=== PATIENT | female | born 1965 | race Caucasian/White ===

== ENCOUNTER 2022-09-21 19:49 | Emergency (ER) | payer BC ==
[2022-09-21] MEDS ORDERED: Ketorolac Tromethamine 30 MG/ML VIAL ONE (21:16)
[2022-09-21 21:54] LABS: #Basophils 0.1 thou/uL (0.0-0.2); #Eosinphils 0.4 thou/uL (0.0-0.7); #Monocytes 0.6 thou/uL (0.11-0.59); #Neutrophils 6.5 thou/uL (1.40-6.50); %Basophils 0.8 % (0.0-1.0); %Eosinophils 5.1 % (0.0-10.0); %Lymphocytes 10.3 % (21.0-51.0); %Monocytes 6.9 % (0.0-10.0); %Neutrophils 76.5 % (42.0-75.0); Hematocrit 27.2 % (36.0-47.0); Hemoglobin 7.8 g/dL (12.0-16.0); Mean Corpuscular HGB CONC 28.7 g/dL (32.0-36.0); Mean Corpuscular Volume 73.1 fl (78.0-98.0); Mean Platelet Volume 9.9 fL (7.4-10.4); Platelet Count 380 10x3/uL (130-400); RBC Distribution Width 18.6 % (11.5-14.5); Red Blood Cell (RBC) Count 3.72 mill/uL (4.20-5.40); White Blood Cell (WBC) Count 8.5 10x3/uL (4.8-10.8)
[2022-09-21 22:13] LABS: Delete Auto Diff?? NO
[2022-09-21 22:23] LABS: Albumin 3.2 g/dL (3.5-5.0)
[2022-09-21 22:23] LABS: INR-International Normal Ratio 1.4; Prothrombin Time 17.2 sec (12.0-14.7)
[2022-09-21 22:24] LABS: Chloride 106 mmol/L (98-107); Potassium 4.6 mmol/L (3.5-5.1); Sodium 134 mmol/L (136-145)
[2022-09-21 22:24] LABS: PTT 32.7 sec (22.9-36.1)
[2022-09-21 22:25] LABS: Globulin 4.1 g/dL (2.4-3.5); Glucose 138 mg/dL (70-105); Protein, Total 7.3 g/dL (6.0-8.3)
[2022-09-21 22:27] LABS: Anion Gap 20 mmol/L (10-20); Bilirubin, Total 0.7 mg/dL (0.2-1.2); Carbon Dioxide 13 mmol/L (22-29)
[2022-09-21 22:28] LABS: Alkaline Phosphatase 121 U/L (40-110)
[2022-09-21 22:29] LABS: Calc. Creatinine Clearance 0 mL/min (70-130); Estimated GFR 54
[2022-09-21 22:30] LABS: BUN (Urea Nitrogen) 19 mg/dL (9.8-20.1)
[2022-09-21 22:31] LABS: ALT (SGPT) Less than 7 U/L (8-55); AST (SGOT) 13 U/L (5-34)
[2022-09-21 22:49] LABS: Anisocytosis MODERATE=16-30 cells HPF (0-5); Burr Cells SLIGHT = 2-5 cells HPF (0-1); CellaVision Operator ID LAB.JMM; Macrocytosis SLIGHT = 6-15 cells HPF (0-5); Platelet Adequacy Comment Platelets Normal
[2022-09-21] MEDS ORDERED: Tranexamic Acid 1,000 MG/10 ML VIAL ONE (23:55)
[2022-09-22] MEDS ORDERED: Morphine 4 MG/ML VIAL ONE ×3 (01:15→09:02)
[2022-09-22] MEDS ORDERED: Ondansetron PF 4 MG/2 ML Vial ONE (01:15)
[2022-09-22] MEDS ORDERED: HYDROcodone/Acetaminophen 10/325 mg Tablet ONE (04:16)
== END 2022-09-22 09:21 | disposition short-term general hospital (02) ==
LOC: ERS 19:49
DX: N92.0 Excessive and frequent menstruation with regular cycle (principal); D64.9 Anemia, unspecified; E11.9 Type 2 diabetes mellitus without complications; I10 Essential (primary) hypertension; Z79.899 Other long term (current) drug therapy
CPT/HCPCS: 76856; 80053; 85025; 85610; 85730; 86850; 86870; 86900; 86901; 86904; 86905; 86922; 87480; 87510; 87660; 93976; 96365; 96372; 96375; 96376; J1885; J2270; J2405

== ENCOUNTER 2023-03-20 03:00 | Inpatient (IN) | payer OTHER ==
[2023-03-20 04:55] LABS: #Eosinphils 0.3 thou/uL (0.0-0.7); #Monocytes 0.6 thou/uL (0.11-0.59); #Neutrophils 6.7 thou/uL (1.40-6.50); %Basophils 0.5 % (0.0-1.0); %Eosinophils 3.3 % (0.0-10.0); %Lymphocytes 7.3 % (21.0-51.0); %Monocytes 7.3 % (0.0-10.0); Hematocrit 36.3 % (36.0-47.0); Hemoglobin 10.4 g/dL (12.0-16.0); Mean Corpuscular HGB CONC 28.7 g/dL (32.0-36.0); Mean Corpuscular Volume 73.2 fl (78.0-98.0); Mean Platelet Volume 9.7 fL (7.4-10.4); Platelet Count 370 10x3/uL (130-400); RBC Distribution Width 20.6 % (11.5-14.5); Red Blood Cell (RBC) Count 4.96 mill/uL (4.20-5.40); White Blood Cell (WBC) Count 8.3 10x3/uL (4.8-10.8)
[2023-03-20 05:08] LABS: INR-International Normal Ratio 1.2; Prothrombin Time 15.4 sec (12.0-14.7)
[2023-03-20 05:16] LABS: ALT (SGPT) 8 U/L (8-55); AST (SGOT) 11 U/L (5-34); Alkaline Phosphatase 162 U/L (40-110); Anion Gap 12 mmol/L (10-20); BUN (Urea Nitrogen) 21 mg/dL (9.8-20.1); Bilirubin, Total 0.7 mg/dL (0.2-1.2); Calc. Creatinine Clearance 0 mL/min (70-130); Calcium 8.9 mg/dL (7.8-10.44); Carbon Dioxide 28 mmol/L (22-29); Chloride 97 mmol/L (98-107); Estimated GFR 77; Globulin 4.1 g/dL (2.4-3.5); Potassium 4.4 mmol/L (3.5-5.1); Protein, Total 7.1 g/dL (6.0-8.3); Sodium 133 mmol/L (136-145)
[2023-03-20 05:28] LABS: Critical Call Chemistry NUR.KVR@0528; Glucose 455 mg/dL (70-105)
[2023-03-20 06:58] LABS: Troponin I 0.013 ng/mL (< 0.028)
[2023-03-20 09:32] LABS: Troponin I Less than 0.010 ng/mL (< 0.028)
[2023-03-20] MEDS ORDERED: Morphine 4 MG/ML VIAL ONE (09:41)
[2023-03-20] MEDS ORDERED: Ondansetron PF 4 MG/2 ML Vial ONE (09:41)
[2023-03-20] MEDS ORDERED: Nitroglycerin 2% Ointment 1 INCH/1 GM Packet ONE (09:41)
[2023-03-20] MEDS ORDERED: cefTRIAXone (ROCEPHIN) 2 GM VIAL ONE (09:42)
[2023-03-20] MEDS ORDERED: Sodium Chloride 0.9% 100 ML ONE (09:42)
[2023-03-20] MEDS ORDERED: Furosemide 40 MG (4 mL) VIAL ONE ×2 (09:43→15:14)
[2023-03-20] MEDS ORDERED: Nystatin Powder 15 GM BOT TOP PRN (10:57)
[2023-03-20] MEDS ORDERED: Ondansetron ODT 4 MG TAB PO PRN (11:04)
[2023-03-20] MEDS ORDERED: Acetaminophen 650 MG Suppository PR PRN (11:04)
[2023-03-20] MEDS ORDERED: Dextrose 5% in Water 1,000 ML IV PRN (11:07)
[2023-03-20] MEDS ORDERED: Dextrose 50% Abboject 50 ML SYRINGE SLOW IVP PRN (11:07)
[2023-03-20] MEDS ORDERED: Glucagon 1 MG/ML KIT IM PRN (11:07)
[2023-03-20 11:15] LABS: Bacteria/HPF None Seen HPF (None Seen); Bilirubin Negative (Negative); Blood, Urine 3+ (Negative); CAUTI Indications for Culture Pelvic or flank pain; Glucose, Urine (Dipstick) Greater than 1000 mg/dL (Negative); Ketone, Urine Negative (Negative); Leukocyte 250 Leu/uL (Negative); Nitrite Negative (Negative); Protein, Urine (Dipstick) 300 mg/dL (Neg-Trace); RBC/HPF Greater than 50 HPF (0-3); Specific Gravity, Urine 1.017 (1.002-1.036); Squamous Epithelial 0-3 HPF (0-3); Urobilinogen Normal mg/dL (Less than 2); WBC/HPF 21-50 HPF (0-3); pH, Urine 6.5 (5.0-9.0)
[2023-03-20 11:17] LABS: Clarity Cloudy (Clear)
[2023-03-20 11:18] LABS: Urine Culture Reflex Yes Yes
[2023-03-20 12:09] LABS: Troponin I 0.012 ng/mL (< 0.028)
[2023-03-20] MEDS: Vancomycin (BATCH) 2 GM in Premix 1 BAG IVPB SCH (12:58)
[2023-03-20] MEDS ORDERED: Fluconazole 100 MG TAB ONE (15:15)
[2023-03-20] MEDS: Furosemide 40 MG (4 mL) VIAL SLOW IVP SCH (15:19)
[2023-03-20] MEDS: Fluconazole 100 MG TAB PO SCH (15:19)
[2023-03-20 16:30] LABS: Hemoglobin 10.3 g/dL (12.0-16.0)
[2023-03-20 18:41] VITALS: BMI 63.5
[2023-03-20] MEDS ORDERED: Vancomycin 1 GM in Premix 1 BAG IVPB SCH (21:00)
[2023-03-20] MEDS: busPIRone HCl 10 MG TAB PO SCH (21:01)
[2023-03-20] MEDS: Megestrol Acetate 40 MG TAB PO SCH (22:20)
[2023-03-21] MEDS: Vancomycin (BATCH) 1.5 GM in Premix 1 BAG IVPB SCH (00:08)
[2023-03-21] MEDS: Ketorolac Tromethamine 30 MG (1 mL) VIAL IVP SCH (02:37)
[2023-03-21] MEDS: Morphine 4 MG/ML VIAL SLOW IVP PRN (02:38)
[2023-03-21 05:01] LABS: #Basophils 0.1 thou/uL (0.0-0.2); #Eosinphils 0.3 thou/uL (0.0-0.7); #Monocytes 0.7 thou/uL (0.11-0.59); #Neutrophils 7.6 thou/uL (1.40-6.50); %Basophils 0.5 % (0.0-1.0); %Eosinophils 3.5 % (0.0-10.0); %Lymphocytes 7.3 % (21.0-51.0); %Monocytes 7.6 % (0.0-10.0); %Neutrophils 80.5 % (42.0-75.0); Hematocrit 34.4 % (36.0-47.0); Hemoglobin 9.9 g/dL (12.0-16.0); Mean Corpuscular HGB CONC 28.8 g/dL (32.0-36.0); Mean Corpuscular Hemoglobin 21.2 pg (27.0-31.0); Mean Corpuscular Volume 73.7 fl (78.0-98.0); Mean Platelet Volume 9.6 fL (7.4-10.4); Platelet Count 390 10x3/uL (130-400); RBC Distribution Width 20.2 % (11.5-14.5); Red Blood Cell (RBC) Count 4.67 mill/uL (4.20-5.40); White Blood Cell (WBC) Count 9.5 10x3/uL (4.8-10.8)
[2023-03-21 05:29] LABS: ALT (SGPT) 9 U/L (8-55); AST (SGOT) 11 U/L (5-34); Albumin 2.9 g/dL (3.5-5.0); Alkaline Phosphatase 159 U/L (40-110); Anion Gap 10 mmol/L (10-20); BUN (Urea Nitrogen) 20 mg/dL (9.8-20.1); Calc. Creatinine Clearance 185 mL/min (70-130); Calcium 9.2 mg/dL (7.8-10.44); Carbon Dioxide 32 mmol/L (22-29); Chloride 97 mmol/L (98-107); Estimated GFR 76; Glucose 323 mg/dL (70-105); Potassium 4.5 mmol/L (3.5-5.1); Protein, Total 6.9 g/dL (6.0-8.3); Sodium 134 mmol/L (136-145)
[2023-03-21 05:43] LABS: CellaVision Operator ID lab.abc; Hypochromia SLIGHT = 6-15 cells HPF (0-5); Large Platelets 5.9 % (0-5); Microcytosis SLIGHT = 6-15 cells HPF (0-5); Platelet Adequacy Comment Platelets Normal; Polychromasia SLIGHT = 2-3 cells HPF (0-2)
[2023-03-21] MEDS: HumaLOG 300 UNITS/3 ML VIAL SC PRN ×2 (06:26→21:48)
[2023-03-21] MEDS: Megestrol Acetate 40 MG TAB PO SCH ×2 (07:54→22:55)
[2023-03-21] MEDS: Potassium Chloride 10 MEQ TAB PO SCH (07:55)
[2023-03-21] MEDS: Sertraline 25 MG TAB PO SCH (07:55)
[2023-03-21] MEDS: Tamsulosin HCl 0.4 MG CAP PO SCH (07:56)
[2023-03-21] MEDS: Furosemide 40 MG (4 mL) VIAL SLOW IVP SCH ×2 (07:57→13:12)
[2023-03-21] MEDS: cefTRIAXone\\ROCEPHIN 1 GM in Sodium Chloride 0.9% 100 ML IVPB SCH (09:36)
[2023-03-21] MEDS: metFORMIN 500 MG TAB PO SCH (13:11)
[2023-03-21 23:52] LABS: Vancomycin, Trough 21.3 ug/mL
[2023-03-22] MEDS: Vancomycin 1.25 GM in Sodium Chloride 0.9% 250 ML 250 ML IVPB SCH (03:15)
[2023-03-22] MEDS: Glimepiride 2 MG TAB PO SCH (08:23)
[2023-03-22] MEDS: Losartan 25 MG TAB PO SCH (08:23)
[2023-03-22] MEDS: Metolazone 5 MG TAB PO SCH (08:24)
[2023-03-22] MEDS: Megestrol Acetate 40 MG TAB PO SCH (08:25)
[2023-03-22] MEDS: Empagliflozin 10 MG TAB PO SCH (08:32)
[2023-03-22 10:28] LABS: Troponin I 0.015 ng/mL (< 0.028)
[2023-03-22] MEDS: Vancomycin (BATCH) 1.25 GM in Premix 1 BAG IVPB SCH (14:00)
[2023-03-23] MEDS: Ondansetron PF 4 MG/2 ML Vial IVP PRN (03:35)
[2023-03-23 05:48] LABS: Anion Gap 12 mmol/L (10-20); BUN (Urea Nitrogen) 28 mg/dL (9.8-20.1); Calc. Creatinine Clearance 154 mL/min (70-130); Carbon Dioxide 30 mmol/L (22-29); Estimated GFR 62; Glucose 117 mg/dL (70-105); Potassium 3.9 mmol/L (3.5-5.1)
[2023-03-23 06:23] LABS: Chloride 99 mmol/L (98-107); Sodium 137 mmol/L (136-145)
[2023-03-23] MEDS: Insulin Glargine 30 UNITS/0.3 ML VIAL SC SCH (14:20)
[2023-03-23] MEDS: Torsemide 20 MG TAB PO SCH (14:21)
[2023-03-23 14:47] LABS: Vancomycin, Trough 31.1 ug/mL
[2023-03-23] MEDS: Senokot S 8.6-50 MG TAB PO PRN (17:42)
[2023-03-23] MEDS: Acetaminophen 325 MG TAB PO PRN (17:48)
[2023-03-24] MEDS: Bisacodyl 10 MG SUPP PR PRN (02:01)
[2023-03-24 05:13] LABS: #Eosinphils 0.3 thou/uL (0.0-0.7); #Monocytes 0.9 thou/uL (0.11-0.59); #Neutrophils 7.4 thou/uL (1.40-6.50); %Basophils 0.4 % (0.0-1.0); %Eosinophils 2.7 % (0.0-10.0); %Lymphocytes 6.6 % (21.0-51.0); %Monocytes 9.4 % (0.0-10.0); %Neutrophils 80.2 % (42.0-75.0); Hematocrit 35.1 % (36.0-47.0); Hemoglobin 9.7 g/dL (12.0-16.0); Mean Corpuscular HGB CONC 27.6 g/dL (32.0-36.0); Mean Corpuscular Hemoglobin 20.8 pg (27.0-31.0); Mean Corpuscular Volume 75.2 fl (78.0-98.0); Mean Platelet Volume 10.1 fL (7.4-10.4); Platelet Count 381 10x3/uL (130-400); RBC Distribution Width 20.1 % (11.5-14.5); Red Blood Cell (RBC) Count 4.67 mill/uL (4.20-5.40); White Blood Cell (WBC) Count 9.2 10x3/uL (4.8-10.8)
[2023-03-24 05:49] LABS: Anion Gap 11 mmol/L (10-20); BUN (Urea Nitrogen) 29 mg/dL (9.8-20.1); Calc. Creatinine Clearance 141 mL/min (70-130); Calcium 9.1 mg/dL (7.8-10.44); Carbon Dioxide 34 mmol/L (22-29); Chloride 97 mmol/L (98-107); Estimated GFR 54; Glucose 148 mg/dL (70-105); Potassium 4.2 mmol/L (3.5-5.1); Sodium 138 mmol/L (136-145)
[2023-03-24] MEDS: Insulin Glargine 30 UNITS/0.3 ML VIAL SC SCH (08:58)
[2023-03-24] MEDS: Bisacodyl 10 MG SUPP PR SCH (11:42)
[2023-03-24] MEDS: Polyethylene Glycol 3350 17 GM Packet PO SCH (12:48)
[2023-03-25 05:04] LABS: #Basophils 0.1 thou/uL (0.0-0.2); #Eosinphils 0.3 thou/uL (0.0-0.7); #Monocytes 0.9 thou/uL (0.11-0.59); #Neutrophils 6.7 thou/uL (1.40-6.50); %Basophils 0.7 % (0.0-1.0); %Eosinophils 3.1 % (0.0-10.0); %Lymphocytes 8.4 % (21.0-51.0); %Monocytes 10.1 % (0.0-10.0); %Neutrophils 77.4 % (42.0-75.0); Hematocrit 33.5 % (36.0-47.0); Hemoglobin 9.3 g/dL (12.0-16.0); Mean Corpuscular HGB CONC 27.8 g/dL (32.0-36.0); Mean Corpuscular Hemoglobin 20.8 pg (27.0-31.0); Mean Corpuscular Volume 74.8 fl (78.0-98.0); Mean Platelet Volume 9.6 fL (7.4-10.4); Platelet Count 382 10x3/uL (130-400); Red Blood Cell (RBC) Count 4.48 mill/uL (4.20-5.40); White Blood Cell (WBC) Count 8.7 10x3/uL (4.8-10.8)
[2023-03-25 05:28] LABS: Anion Gap 13 mmol/L (10-20); BUN (Urea Nitrogen) 31 mg/dL (9.8-20.1); Calc. Creatinine Clearance 136 mL/min (70-130); Calcium 9.4 mg/dL (7.8-10.44); Carbon Dioxide 33 mmol/L (22-29); Chloride 95 mmol/L (98-107); Estimated GFR 52; Glucose 163 mg/dL (70-105); Potassium 4.1 mmol/L (3.5-5.1); Sodium 137 mmol/L (136-145)
[2023-03-25] MEDS: Polyethylene Glycol 3350 17 GM Packet PO SCH (10:24)
[2023-03-25] MEDS: Sodium Chloride 0.9% 500 ML IV SCH (10:54)
[2023-03-25] MEDS: Fleet Saline Enema 133 ML BOT PR SCH (13:37)
[2023-03-25] MEDS: Amoxicillin/Potassium Clav 875 MG TAB PO SCH ×2 (16:37→20:26)
[2023-03-26 06:11] LABS: #Basophils 0.1 thou/uL (0.0-0.2); #Eosinphils 0.3 thou/uL (0.0-0.7); #Monocytes 0.8 thou/uL (0.11-0.59); #Neutrophils 4.9 thou/uL (1.40-6.50); %Basophils 0.9 % (0.0-1.0); %Eosinophils 4.4 % (0.0-10.0); %Lymphocytes 12.3 % (21.0-51.0); Hemoglobin 10.5 g/dL (12.0-16.0); Mean Corpuscular HGB CONC 27.6 g/dL (32.0-36.0); Mean Corpuscular Hemoglobin 21.1 pg (27.0-31.0); Mean Corpuscular Volume 76.5 fl (78.0-98.0); Platelet Count 340 10x3/uL (130-400); RBC Distribution Width 19.9 % (11.5-14.5); Red Blood Cell (RBC) Count 4.97 mill/uL (4.20-5.40); White Blood Cell (WBC) Count 6.9 10x3/uL (4.8-10.8)
[2023-03-26 06:35] LABS: Anion Gap 13 mmol/L (10-20); BUN (Urea Nitrogen) 27 mg/dL (9.8-20.1); Calc. Creatinine Clearance 142 mL/min (70-130); Calcium 9.6 mg/dL (7.8-10.44); Carbon Dioxide 36 mmol/L (22-29); Chloride 93 mmol/L (98-107); Estimated GFR 58; Glucose 129 mg/dL (70-105); Potassium 4.1 mmol/L (3.5-5.1); Sodium 138 mmol/L (136-145)
[2023-03-26 07:27] LABS: Anisocytosis SLIGHT = 6-15 cells HPF (0-5); CellaVision Operator ID lab.dlt; Hypochromia SLIGHT = 6-15 cells HPF (0-5); Microcytosis SLIGHT = 6-15 cells HPF (0-5); Platelet Adequacy Comment Platelets Normal; Poikilocytosis SLIGHT = 6-15 cells HPF (0-5); Polychromasia SLIGHT = 2-3 cells HPF (0-2); Schistocytes SLIGHT = 2-5 cells HPF (0-1)
[2023-03-26 08:00] VITALS: TEMP 98
[2023-03-26 16:30] VITALS: BP 127/69
== END 2023-03-26 16:41 | disposition home health service (06) | DRG 291 ==
LOC: ERS 03:00 → ERHOLD 08:16 → 2SE 17:24
PROVIDERS: ADMIT Internal Medicine; ATTEND Internal Medicine
DX: I11.0 Hypertensive heart disease with heart failure (principal); I50.33 Acute on chronic diastolic (congestive) heart failure; J96.11 Chronic respiratory failure with hypoxia; L03.311 Cellulitis of abdominal wall; I47.20 Ventricular tachycardia, unspecified; Z68.44 Body mass index [BMI] 60.0-69.9, adult; E11.40 Type 2 diabetes mellitus with diabetic neuropathy, unspecified; E11.65 Type 2 diabetes mellitus with hyperglycemia; E66.01 Morbid (severe) obesity due to excess calories; G47.33 Obstructive sleep apnea (adult) (pediatric); K59.00 Constipation, unspecified; D63.8 Anemia in other chronic diseases classified elsewhere; I27.81 Cor pulmonale (chronic); C55 Malignant neoplasm of uterus, part unspecified; Z88.1 Allergy status to other antibiotic agents; Z79.4 Long term (current) use of insulin; Z99.81 Dependence on supplemental oxygen; Z74.01 Bed confinement status; Z99.3 Dependence on wheelchair; Z79.899 Other long term (current) drug therapy
CPT/HCPCS: 36415; 36416; 71045; 74018; 76705; 80048; 80053; 80202; 81001; 83735; 83880; 84484; 85025; 85610; 85730; 86850; 86870; 86880; 86900; 86901; 86904; 86922; 87081; 87086; 93005; 93010; 94660; 96374; 96375; 97139; J0696; J1815; J1940; J2270; J2405; J3370; J3490; J7050; S0179

== ENCOUNTER 2023-06-24 21:21 | Inpatient (IN) | payer OTHER ==
[2023-06-24] MEDS ORDERED: methylPREDNISolone Sod Succ/PF 125 MG/2 ML VIAL ONE (21:31)
[2023-06-24 21:54] LABS: #Basophils 0.06 10x3/uL (0.0-0.2); %Basophils 0.4 % (0.0-1.0); %Eosinophils 1.5 % (0.0-10.0); %Lymphocytes 3.7 % (21.0-51.0); %Monocytes 8.7 % (0.0-10.0); Mean Corpuscular HGB CONC 29.6 g/dL (32.0-36.0); Mean Corpuscular Hemoglobin 24.7 pg (27.0-31.0); Mean Corpuscular Volume 83.3 fL (78.0-98.0); Mean Platelet Volume 9.2 fL (7.4-10.4); Platelet Count 595 10x3/uL (130-400); RBC Distribution Width 20.7 % (11.5-14.5); Red Blood Cell (RBC) Count 3.24 mill/uL (4.20-5.40)
[2023-06-24 21:56] LABS: Actual Bicarbonate (HCO3a) 19.2 mEq/L (22-28); Analyzer IN Cardio ER; Base Excess (BEa) -5.3 mEq/L (-2.0 to +3.0); CO2 Tension 33.6 mmHg (35.0-45.0); Calcium, Ionized (arterial) 1.24 mmol/L (1.12-1.30); Carboxyhemoglobin (COHb) 0.6 gm% (0.0-3.0); Hematocrit-ABG 26 % (36.0-47.0); Hemoglobin (Hb) 8.9 g/dL (12.0-16.0); O2 Tension (PaO2), arterial 84.4 mmHg (80.0-100.0); Potassium - ABG Lab 4.51 mmol/L (3.70-5.30); pH, Arterial 7.375 (7.35-7.45)
[2023-06-24 21:57] LABS: Puncture Site RBA
[2023-06-24 22:13] LABS: ALT (SGPT) 10 U/L (8-55); AST (SGOT) 18 U/L (5-34); Albumin 2.6 g/dL (3.5-5.0); Alkaline Phosphatase 165 U/L (40-110); Anion Gap 22 mmol/L (10-20); BUN (Urea Nitrogen) 65 mg/dL (9.8-20.1); Bilirubin, Total 0.6 mg/dL (0.2-1.2); Calc. Creatinine Clearance 0 mL/min (70-130); Calcium 9.8 mg/dL (7.8-10.44); Carbon Dioxide 19 mmol/L (22-29); Chloride 101 mmol/L (98-107); Estimated GFR 29; Globulin 4.8 g/dL (2.4-3.5); Glucose 184 mg/dL (70-105); Potassium 4.6 mmol/L (3.5-5.1); Protein, Total 7.4 g/dL (6.0-8.3); Sodium 137 mmol/L (136-145)
[2023-06-24 22:16] LABS: Troponin I 0.024 ng/mL (< 0.028)
[2023-06-24] MEDS ORDERED: Ondansetron PF 4 MG/2 ML Vial IVP PRN (23:00)
[2023-06-24] MEDS ORDERED: Ondansetron ODT 4 MG TAB SL PRN (23:00)
[2023-06-24] MEDS ORDERED: Acetaminophen 325 MG TAB PO PRN (23:00)
[2023-06-24] MEDS ORDERED: Ondansetron ODT 4 MG TAB PO PRN (23:25)
[2023-06-24] MEDS ORDERED: Acetaminophen 650 MG Suppository PR PRN (23:25)
[2023-06-24] MEDS ORDERED: Furosemide 20 MG (2 mL) VIAL ONE (23:47)
[2023-06-24] MEDS ORDERED: Furosemide 40 MG (4 mL) VIAL ONE (23:47)
[2023-06-24] MEDS ORDERED: Glucagon 1 MG/ML KIT IM PRN (23:48)
[2023-06-24] MEDS ORDERED: Dextrose 5% in Water 1,000 ML IV PRN (23:48)
[2023-06-25 05:39] LABS: #Basophils 0.05 10x3/uL (0.0-0.2); #Eosinphils Less than 0.03 10x3/uL (0.0-0.7); %Basophils 0.3 % (0.0-1.0); %Eosinophils 0.1 % (0.0-10.0); %Lymphocytes 1.9 % (21.0-51.0); %Monocytes 2.8 % (0.0-10.0); %Neutrophils 94.2 % (42.0-75.0); Hematocrit 28.8 % (36.0-47.0); Hemoglobin 8.1 g/dL (12.0-16.0); Mean Corpuscular HGB CONC 28.1 g/dL (32.0-36.0); Mean Corpuscular Volume 85.2 fL (78.0-98.0); Mean Platelet Volume 9.9 fL (7.4-10.4); Platelet Count 564 10x3/uL (130-400); Red Blood Cell (RBC) Count 3.38 mill/uL (4.20-5.40)
[2023-06-25 06:02] LABS: Anisocytosis SLIGHT = 6-15 cells HPF (0-5); Hypochromia SLIGHT = 6-15 cells HPF (0-5); Macrocytosis SLIGHT = 6-15 cells HPF (0-5); Platelet Adequacy Comment Platelets Increased; Polychromasia SLIGHT = 2-3 cells HPF (0-2)
[2023-06-25 06:09] LABS: Anion Gap 26 mmol/L (10-20); BUN (Urea Nitrogen) 65 mg/dL (9.8-20.1); Calc. Creatinine Clearance 0 mL/min (70-130); Carbon Dioxide 14 mmol/L (22-29); Chloride 101 mmol/L (98-107); Estimated GFR 29; Glucose 227 mg/dL (70-105); Magnesium 2.1 mg/dL (1.6-2.6); Potassium 5.2 mmol/L (3.5-5.1); Sodium 136 mmol/L (136-145)
[2023-06-25] MEDS: Furosemide 40 MG (4 mL) VIAL SLOW IVP SCH (06:25)
[2023-06-25 07:04] VITALS: BMI 66.7
[2023-06-25] MEDS: Sodium Bicarbonate Tab 325 MG TAB PO SCH ×2 (08:04→21:33)
[2023-06-25] MEDS: Sertraline 25 MG TAB PO SCH (08:04)
[2023-06-25] MEDS: Insulin Glargine 30 UNITS/0.3 ML VIAL SC SCH (08:04)
[2023-06-25] MEDS: Spironolactone 25 MG TAB PO SCH (08:05)
[2023-06-25] MEDS: busPIRone HCl 10 MG TAB PO SCH (08:05)
[2023-06-25] MEDS: Pantoprazole DR 40 MG TAB PO SCH (08:05)
[2023-06-25] MEDS: Megestrol Acetate 40 MG TAB PO SCH (08:05)
[2023-06-25] MEDS: Metoprolol Tartrate 50 MG TAB PO SCH (08:05)
[2023-06-25] MEDS: Acetaminophen 325 MG TAB PO PRN (08:10)
[2023-06-25] MEDS ORDERED: Metoprolol Tartrate 50 MG TAB PO SCH (09:19)
[2023-06-25] MEDS: Metoprolol Tartrate 25 MG TAB PO SCH (11:39)
[2023-06-25] MEDS: HumaLOG 300 UNITS/3 ML VIAL SC PRN ×2 (11:42→16:53)
[2023-06-25] MEDS: Vancomycin HCl 125 MG Capsule PO SCH (18:37)
[2023-06-26] MEDS: Ondansetron PF 4 MG/2 ML Vial IVP PRN (00:21)
[2023-06-26 07:26] LABS: Anion Gap 20 mmol/L (10-20); BUN (Urea Nitrogen) 73 mg/dL (9.8-20.1); Calc. Creatinine Clearance 73 mL/min (70-130); Carbon Dioxide 19 mmol/L (22-29); Chloride 103 mmol/L (98-107); Estimated GFR 24; Glucose 338 mg/dL (70-105); Potassium 4.7 mmol/L (3.5-5.1); Sodium 137 mmol/L (136-145)
[2023-06-27 06:47] LABS: Anion Gap 21 mmol/L (10-20); BUN (Urea Nitrogen) 79 mg/dL (9.8-20.1); Calc. Creatinine Clearance 66 mL/min (70-130); Calcium 9.5 mg/dL (7.8-10.44); Carbon Dioxide 17 mmol/L (22-29); Chloride 103 mmol/L (98-107); Estimated GFR 21; Glucose 352 mg/dL (70-105); Potassium 4.9 mmol/L (3.5-5.1); Sodium 136 mmol/L (136-145)
[2023-06-27] MEDS: Cyclobenzaprine 10 MG TAB PO PRN (23:38)
[2023-06-28] MEDS: Morphine 4 MG/ML VIAL ONE (04:15)
[2023-06-28 07:04] LABS: Anion Gap 22 mmol/L (10-20); BUN (Urea Nitrogen) 83 mg/dL (9.8-20.1); Calc. Creatinine Clearance 66 mL/min (70-130); Calcium 9.4 mg/dL (7.8-10.44); Carbon Dioxide 19 mmol/L (22-29); Chloride 103 mmol/L (98-107); Estimated GFR 21; Glucose 201 mg/dL (70-105); Potassium 4.6 mmol/L (3.5-5.1); Sodium 139 mmol/L (136-145)
[2023-06-28] MEDS: Lactated Ringer's 500 ML IV SCH (08:49)
[2023-06-28] MEDS: Heparin 5,000 UNITS/ML VIAL SC SCH (08:50)
[2023-06-28 09:03] LABS: #Basophils 0.06 10x3/uL (0.0-0.2); %Basophils 0.4 % (0.0-1.0); %Eosinophils 3.6 % (0.0-10.0); %Lymphocytes 3.2 % (21.0-51.0); %Monocytes 8.1 % (0.0-10.0); Hematocrit 31.9 % (36.0-47.0); Mean Corpuscular HGB CONC 28.2 g/dL (32.0-36.0); Mean Corpuscular Hemoglobin 24.6 pg (27.0-31.0); Mean Corpuscular Volume 87.2 fL (78.0-98.0); Mean Platelet Volume 9.8 fL (7.4-10.4); Platelet Count 599 10x3/uL (130-400); RBC Distribution Width 21.2 % (11.5-14.5); Red Blood Cell (RBC) Count 3.66 mill/uL (4.20-5.40)
[2023-06-28 10:20] LABS: Anisocytosis MODERATE=16-30 cells HPF (0-5); Hypochromia SLIGHT = 6-15 cells HPF (0-5); Platelet Adequacy Comment Platelets Increased; Polychromasia SLIGHT = 2-3 cells HPF (0-2)
[2023-06-28] MEDS: Furosemide 40 MG (4 mL) VIAL SLOW IVP SCH (14:30)
[2023-06-28] MEDS: Albumin 25% 25 GM (100 mL) BOT IVPB SCH (14:30)
[2023-06-28 21:32] LABS: Bilirubin Negative (Negative); Blood, Urine 3+ (Negative); Clarity Turbid (Clear); Glucose, Urine (Dipstick) Normal (Negative); Ketone, Urine Negative (Negative); Leukocyte 250 Leu/uL (Negative); Nitrite Negative (Negative); Protein, Urine (Dipstick) 200 mg/dL (Neg-Trace); RBC/HPF Greater than 50 HPF (0-3); Specific Gravity, Urine 1.018 (1.002-1.036); Urobilinogen Normal mg/dL (Less than 2); WBC/HPF 21-50 HPF (0-3); Yeast-Budding 2+ HPF (None Seen); pH, Urine 5.5 (5.0-9.0)
[2023-06-28] MEDS: Ipratropium/Albuterol 3 ML NEB NEB PRN (21:32)
[2023-06-28 21:36] LABS: Bacteria/HPF 1+ HPF (None Seen)
[2023-06-29] MEDS: Morphine 2 MG/ML VIAL SLOW IVP SCH (01:31)
[2023-06-29 06:47] LABS: #Basophils 0.07 10x3/uL (0.0-0.2); %Basophils 0.4 % (0.0-1.0); %Eosinophils 2.4 % (0.0-10.0); %Lymphocytes 2.9 % (21.0-51.0); %Monocytes 7.6 % (0.0-10.0); %Neutrophils 85.5 % (42.0-75.0); Hemoglobin 8.6 g/dL (12.0-16.0); Mean Corpuscular HGB CONC 27.7 g/dL (32.0-36.0); Mean Corpuscular Hemoglobin 23.8 pg (27.0-31.0); Mean Corpuscular Volume 85.9 fL (78.0-98.0); Mean Platelet Volume 9.6 fL (7.4-10.4); Platelet Count 552 10x3/uL (130-400); RBC Distribution Width 21.6 % (11.5-14.5); Red Blood Cell (RBC) Count 3.61 mill/uL (4.20-5.40)
[2023-06-29 07:06] LABS: Anion Gap 23 mmol/L (10-20); BUN (Urea Nitrogen) 86 mg/dL (9.8-20.1); Calc. Creatinine Clearance 67 mL/min (70-130); Carbon Dioxide 22 mmol/L (22-29); Chloride 100 mmol/L (98-107); Estimated GFR 21; Glucose 200 mg/dL (70-105); Potassium 4.8 mmol/L (3.5-5.1); Sodium 140 mmol/L (136-145)
[2023-06-29 07:36] LABS: Anisocytosis MARKED = >30 cells HPF (0-5); Hypochromia SLIGHT = 6-15 cells HPF (0-5); Microcytosis SLIGHT = 6-15 cells HPF (0-5); Platelet Adequacy Comment Platelets Increased; Poikilocytosis SLIGHT = 6-15 cells HPF (0-5); Polychromasia SLIGHT = 2-3 cells HPF (0-2); Schistocytes SLIGHT = 2-5 cells HPF (0-1)
[2023-06-29] MEDS: Albumin 25% 25 GM (100 mL) BOT IVPB SCH (14:02)
[2023-06-30] MEDS: Morphine 2 MG/ML VIAL SLOW IVP SCH (02:18)
[2023-06-30 06:12] LABS: #Basophils 0.06 10x3/uL (0.0-0.2); %Basophils 0.4 % (0.0-1.0); %Eosinophils 2.8 % (0.0-10.0); %Lymphocytes 2.9 % (21.0-51.0); %Monocytes 7.8 % (0.0-10.0); %Neutrophils 84.8 % (42.0-75.0); Hematocrit 27.7 % (36.0-47.0); Hemoglobin 7.7 g/dL (12.0-16.0); Mean Corpuscular HGB CONC 27.8 g/dL (32.0-36.0); Mean Corpuscular Hemoglobin 24.2 pg (27.0-31.0); Mean Corpuscular Volume 87.1 fL (78.0-98.0); Mean Platelet Volume 9.7 fL (7.4-10.4); Platelet Count 465 10x3/uL (130-400); RBC Distribution Width 21.6 % (11.5-14.5); Red Blood Cell (RBC) Count 3.18 mill/uL (4.20-5.40)
[2023-06-30 06:49] LABS: Anisocytosis MODERATE=16-30 cells HPF (0-5); Hypochromia SLIGHT = 6-15 cells HPF (0-5); Microcytosis SLIGHT = 6-15 cells HPF (0-5); Platelet Adequacy Comment Platelets Increased; Polychromasia SLIGHT = 2-3 cells HPF (0-2)
[2023-06-30] MEDS: Digoxin 0.5 MG/2 ML AMP ONE (06:51)
[2023-06-30 07:14] LABS: Anion Gap 21 mmol/L (10-20); BUN (Urea Nitrogen) 88 mg/dL (9.8-20.1); Calc. Creatinine Clearance 70 mL/min (70-130); Carbon Dioxide 20 mmol/L (22-29); Chloride 102 mmol/L (98-107); Estimated GFR 22; Glucose 195 mg/dL (70-105); Potassium 5.3 mmol/L (3.5-5.1); Sodium 138 mmol/L (136-145)
[2023-06-30] MEDS: Adenosine 6 mg (2 mL) VIAL ONE (07:34)
[2023-06-30] MEDS: Adenosine 6 mg (2 mL) VIAL IVP SCH ×2 (07:39→08:41)
[2023-06-30] MEDS ORDERED: Metoprolol Tartrate 5 MG (5 mL) VIAL IVP SCH (08:00)
[2023-06-30] MEDS ORDERED: ADENOSINE 60 MG/20 ML SDV IVP SCH (08:30)
[2023-06-30] MEDS: Metoprolol Tartrate 5 MG (5 mL) VIAL ONE ×2 (08:41→08:42)
[2023-06-30] MEDS: Metoprolol Tartrate 5 MG (5 mL) VIAL IVP SCH ×2 (08:42→08:44)
[2023-06-30] MEDS: Amiodarone 150 MG in Dextrose 5% in Water 100 ML IVPB SCH (10:37)
[2023-06-30] MEDS: Amiodarone 450 MG in Dextrose 5% in Water 250 ML IVPB SCH (10:38)
[2023-06-30] MEDS: Magnesium 2 GM/50 ML(in water) 2 GM in Premix 1 BAG IVPB SCH (10:38)
[2023-06-30] MEDS: ADENOSINE 60 MG/20 ML SDV IVP SCH (12:53)
[2023-06-30] MEDS: Digoxin 0.5 MG/2 ML AMP SLOW IVP SCH (14:19)
[2023-06-30] MEDS: Albumin 25% 25 GM (100 mL) BOT IVPB SCH ×2 (15:16→20:49)
[2023-07-01 07:34] LABS: Anion Gap 21 mmol/L (10-20); BUN (Urea Nitrogen) 91 mg/dL (9.8-20.1); Calc. Creatinine Clearance 64 mL/min (70-130); Calcium 10.1 mg/dL (7.8-10.44); Carbon Dioxide 19 mmol/L (22-29); Chloride 102 mmol/L (98-107); Estimated GFR 20; Glucose 249 mg/dL (70-105); Sodium 137 mmol/L (136-145)
[2023-07-01 07:47] LABS: #Basophils 0.07 10x3/uL (0.0-0.2); %Basophils 0.4 % (0.0-1.0); %Eosinophils 2.4 % (0.0-10.0); %Lymphocytes 2.6 % (21.0-51.0); %Monocytes 9.1 % (0.0-10.0); %Neutrophils 83.7 % (42.0-75.0); Hematocrit 29.1 % (36.0-47.0); Hemoglobin 8.3 g/dL (12.0-16.0); Mean Corpuscular HGB CONC 28.5 g/dL (32.0-36.0); Mean Corpuscular Hemoglobin 24.5 pg (27.0-31.0); Mean Corpuscular Volume 85.8 fL (78.0-98.0); Mean Platelet Volume 9.8 fL (7.4-10.4); Platelet Count 472 10x3/uL (130-400); RBC Distribution Width 21.3 % (11.5-14.5); Red Blood Cell (RBC) Count 3.39 mill/uL (4.20-5.40)
[2023-07-01] MEDS: Amiodarone 200 MG TAB PO SCH (08:58)
[2023-07-01] MEDS: Albumin 25% 25 GM (100 mL) BOT IVPB SCH (15:18)
[2023-07-01] MEDS: Metolazone 5 MG TAB PO SCH (15:32)
[2023-07-02 04:45] LABS: #Basophils 0.06 10x3/uL (0.0-0.2); %Basophils 0.4 % (0.0-1.0); %Eosinophils 2.5 % (0.0-10.0); %Lymphocytes 2.2 % (21.0-51.0); %Monocytes 8.5 % (0.0-10.0); %Neutrophils 84.9 % (42.0-75.0); Hematocrit 29.7 % (36.0-47.0); Hemoglobin 8.2 g/dL (12.0-16.0); Mean Corpuscular HGB CONC 27.6 g/dL (32.0-36.0); Mean Corpuscular Hemoglobin 24.6 pg (27.0-31.0); Mean Corpuscular Volume 89.2 fL (78.0-98.0); Mean Platelet Volume 9.6 fL (7.4-10.4); Platelet Count 487 10x3/uL (130-400); RBC Distribution Width 21.4 % (11.5-14.5); Red Blood Cell (RBC) Count 3.33 mill/uL (4.20-5.40)
[2023-07-02 05:20] LABS: Anion Gap 22 mmol/L (10-20); BUN (Urea Nitrogen) 94 mg/dL (9.8-20.1); Calc. Creatinine Clearance 64 mL/min (70-130); Carbon Dioxide 19 mmol/L (22-29); Chloride 102 mmol/L (98-107); Estimated GFR 19; Glucose 257 mg/dL (70-105); Potassium 4.9 mmol/L (3.5-5.1); Sodium 138 mmol/L (136-145)
[2023-07-02] MEDS: Metolazone 5 MG TAB PO SCH (10:19)
[2023-07-02] MEDS: Albumin 25% 25 GM (100 mL) BOT IVPB SCH (16:03)
[2023-07-03] MEDS: Furosemide 40 MG (4 mL) VIAL SLOW IVP SCH (05:36)
[2023-07-03 07:01] LABS: #Basophils 0.07 10x3/uL (0.0-0.2); %Basophils 0.4 % (0.0-1.0); %Eosinophils 2.3 % (0.0-10.0); %Lymphocytes 2.2 % (21.0-51.0); %Monocytes 9.4 % (0.0-10.0); %Neutrophils 84.6 % (42.0-75.0); Hematocrit 29.2 % (36.0-47.0); Hemoglobin 8.2 g/dL (12.0-16.0); Mean Corpuscular HGB CONC 28.1 g/dL (32.0-36.0); Mean Corpuscular Hemoglobin 24.1 pg (27.0-31.0); Mean Corpuscular Volume 85.9 fL (78.0-98.0); Mean Platelet Volume 9.3 fL (7.4-10.4); Platelet Count 453 10x3/uL (130-400); RBC Distribution Width 21.2 % (11.5-14.5)
[2023-07-03 07:12] LABS: Anion Gap 21 mmol/L (10-20); BUN (Urea Nitrogen) 93 mg/dL (9.8-20.1); Calc. Creatinine Clearance 64 mL/min (70-130); Calcium 10.4 mg/dL (7.8-10.44); Carbon Dioxide 19 mmol/L (22-29); Chloride 104 mmol/L (98-107); Estimated GFR 20; Glucose 183 mg/dL (70-105); Potassium 4.9 mmol/L (3.5-5.1); Sodium 139 mmol/L (136-145)
[2023-07-03] MEDS: Insulin Glargine 30 UNITS/0.3 ML VIAL SC SCH (10:32)
[2023-07-04 07:35] LABS: #Basophils 0.05 10x3/uL (0.0-0.2); %Basophils 0.3 % (0.0-1.0); %Eosinophils 1.7 % (0.0-10.0); %Lymphocytes 2.3 % (21.0-51.0); %Monocytes 9.6 % (0.0-10.0); %Neutrophils 85.3 % (42.0-75.0); Hematocrit 29.9 % (36.0-47.0); Hemoglobin 8.4 g/dL (12.0-16.0); Mean Corpuscular HGB CONC 28.1 g/dL (32.0-36.0); Mean Corpuscular Hemoglobin 24.8 pg (27.0-31.0); Mean Corpuscular Volume 88.2 fL (78.0-98.0); Mean Platelet Volume 9.5 fL (7.4-10.4); Platelet Count 483 10x3/uL (130-400); RBC Distribution Width 21.2 % (11.5-14.5); Red Blood Cell (RBC) Count 3.39 mill/uL (4.20-5.40)
[2023-07-04 07:45] LABS: Anion Gap 22 mmol/L (10-20); BUN (Urea Nitrogen) 95 mg/dL (9.8-20.1); Calc. Creatinine Clearance 63 mL/min (70-130); Calcium 10.1 mg/dL (7.8-10.44); Carbon Dioxide 17 mmol/L (22-29); Chloride 105 mmol/L (98-107); Estimated GFR 19; Glucose 175 mg/dL (70-105); Potassium 5.2 mmol/L (3.5-5.1); Sodium 139 mmol/L (136-145)
[2023-07-04 08:10] LABS: Anisocytosis SLIGHT = 6-15 cells HPF (0-5); Hypochromia SLIGHT = 6-15 cells HPF (0-5); Ovalocytes SLIGHT = 2-5 cells HPF (0-1); Platelet Adequacy Comment Platelets Increased; Polychromasia MODERATE = 3-4 cells HPF (0-2); Schistocytes SLIGHT = 2-5 cells HPF (0-1)
[2023-07-04] MEDS: Sodium Bicarbonate Tab 325 MG TAB PO SCH (14:15)
[2023-07-04] MEDS: Furosemide 40 MG (4 mL) VIAL SLOW IVP SCH (14:15)
[2023-07-04] MEDS: Albumin 25% 25 GM (100 mL) BOT IVPB SCH (14:16)
[2023-07-05 04:21] LABS: #Basophils 0.07 10x3/uL (0.0-0.2); %Basophils 0.4 % (0.0-1.0); %Eosinophils 1.3 % (0.0-10.0); %Monocytes 8.3 % (0.0-10.0); %Neutrophils 87.2 % (42.0-75.0); Hematocrit 29.8 % (36.0-47.0); Hemoglobin 8.5 g/dL (12.0-16.0); Mean Corpuscular HGB CONC 28.5 g/dL (32.0-36.0); Mean Corpuscular Hemoglobin 24.1 pg (27.0-31.0); Mean Corpuscular Volume 84.4 fL (78.0-98.0); Mean Platelet Volume 9.5 fL (7.4-10.4); Platelet Count 458 10x3/uL (130-400); RBC Distribution Width 21.1 % (11.5-14.5); Red Blood Cell (RBC) Count 3.53 mill/uL (4.20-5.40)
[2023-07-05 04:32] LABS: Anion Gap 22 mmol/L (10-20); BUN (Urea Nitrogen) 101 mg/dL (9.8-20.1); Calc. Creatinine Clearance 60 mL/min (70-130); Calcium 10.3 mg/dL (7.8-10.44); Carbon Dioxide 19 mmol/L (22-29); Chloride 103 mmol/L (98-107); Estimated GFR 18; Glucose 149 mg/dL (70-105); Potassium 5.1 mmol/L (3.5-5.1); Sodium 139 mmol/L (136-145)
[2023-07-05] MEDS ORDERED: Epoetin (ESRD) 10,000 UNITS/ML VIAL SC SCH (08:45)
[2023-07-05] MEDS: EPOETIN ALFA-EPBX (ESRD) 10,000 UNITS/ML VIAL SC SCH (14:12)
[2023-07-05] MEDS: Albumin 25% 25 GM (100 mL) BOT IVPB SCH (21:02)
[2023-07-06] MEDS: Simethicone Chewable 80 MG TAB PO PRN (04:06)
[2023-07-06 04:44] LABS: #Basophils 0.08 10x3/uL (0.0-0.2); %Basophils 0.4 % (0.0-1.0); %Eosinophils 1.2 % (0.0-10.0); %Lymphocytes 2.3 % (21.0-51.0); %Monocytes 8.4 % (0.0-10.0); Hematocrit 28.6 % (36.0-47.0); Hemoglobin 8.1 g/dL (12.0-16.0); Mean Corpuscular HGB CONC 28.3 g/dL (32.0-36.0); Mean Corpuscular Hemoglobin 24.3 pg (27.0-31.0); Mean Corpuscular Volume 85.6 fL (78.0-98.0); Mean Platelet Volume 10.1 fL (7.4-10.4); Platelet Count 430 10x3/uL (130-400); RBC Distribution Width 21.1 % (11.5-14.5); Red Blood Cell (RBC) Count 3.34 mill/uL (4.20-5.40)
[2023-07-06 04:55] LABS: Anion Gap 24 mmol/L (10-20); BUN (Urea Nitrogen) 103 mg/dL (9.8-20.1); Calc. Creatinine Clearance 57 mL/min (70-130); Calcium 10.2 mg/dL (7.8-10.44); Carbon Dioxide 17 mmol/L (22-29); Chloride 104 mmol/L (98-107); Estimated GFR 17; Glucose 130 mg/dL (70-105); Potassium 5.3 mmol/L (3.5-5.1); Sodium 140 mmol/L (136-145)
[2023-07-06 08:41] LABS: INR-International Normal Ratio 1.5; Prothrombin Time 18.5 sec (12.0-14.7)
[2023-07-06 08:42] LABS: PTT 39.8 sec (22.9-36.1)
[2023-07-06 10:02] LABS: HBSAB Concentration Less than 8.00 mIU/mL; HBsAg Index 0.79 S/CO (0-0.99); Hep B Core Total Ab NONREACTIVE (NonReactive); Hep B Core Total Index 0.16 S/CO (0-0.79); Hep B Surf AB NONREACTIVE (NonReactive); Hep B Surf Ag NONREACTIVE S/CO (NonReactive); Hep C IgG Ab NONREACTIVE S/CO (NonReactive); Hep C Index 0.11 S/CO (0-0.79)
[2023-07-06] MEDS: Lidocaine 1% (PF) 30 ML VIAL ONE (11:55)
[2023-07-06] MEDS: Vancomycin HCl 125 MG Capsule PO SCH (14:53)
[2023-07-07] MEDS ORDERED: Heparin 10,000 UNITS/ 10 ML VIAL ONE (08:57)
[2023-07-07 10:47] LABS: #Basophils 0.09 10x3/uL (0.0-0.2); %Basophils 0.4 % (0.0-1.0); %Eosinophils 0.5 % (0.0-10.0); %Lymphocytes 1.9 % (21.0-51.0); %Monocytes 6.5 % (0.0-10.0); %Neutrophils 89.5 % (42.0-75.0); Hematocrit 30.6 % (36.0-47.0); Hemoglobin 8.4 g/dL (12.0-16.0); Mean Corpuscular HGB CONC 27.5 g/dL (32.0-36.0); Mean Corpuscular Hemoglobin 24.5 pg (27.0-31.0); Mean Corpuscular Volume 89.2 fL (78.0-98.0); Mean Platelet Volume 9.6 fL (7.4-10.4); Platelet Count 466 10x3/uL (130-400); Red Blood Cell (RBC) Count 3.43 mill/uL (4.20-5.40)
[2023-07-07 11:03] LABS: Albumin 4.3 g/dL (3.5-5.0); Anion Gap 27 mmol/L (10-20); BUN (Urea Nitrogen) 109 mg/dL (9.8-20.1); BUN/Creatinine Ratio 31.41; Calc. Creatinine Clearance 51 mL/min (70-130); Calcium 10.5 mg/dL (7.8-10.44); Carbon Dioxide 17 mmol/L (22-29); Chloride 101 mmol/L (98-107); Estimated GFR 15; Glucose 159 mg/dL (70-105); Phosphorus 6.8 mg/dL (2.3-4.7); Potassium 5.5 mmol/L (3.5-5.1); Sodium 139 mmol/L (136-145)
[2023-07-07] MEDS: LOKELMA 10 GM PACKET PO SCH (13:20)
[2023-07-07 15:12] LABS: Actual Bicarbonate (HCO3a) 17.9 mEq/L (22-28); Base Excess (BEa) -9.6 mEq/L (-2.0 to +3.0); CO2 Tension 46.4 mmHg (35.0-45.0); Calcium, Ionized (arterial) 1.24 mmol/L (1.12-1.30); Carboxyhemoglobin (COHb) 1.1 gm% (0.0-3.0); Hematocrit-ABG 27 % (36.0-47.0); Hemoglobin (Hb) 9.3 g/dL (12.0-16.0); O2 Tension (PaO2), arterial 60.7 mmHg (80.0-100.0); Potassium - ABG Lab 5.51 mmol/L (3.70-5.30)
[2023-07-07 15:20] LABS: pH, Arterial 7.203 (7.35-7.45)
[2023-07-07 15:21] LABS: Puncture Site RRA
[2023-07-07] MEDS ORDERED: Ventilator Sedation Protocol FS SCH (15:37)
[2023-07-07] MEDS ORDERED: Fentanyl BOLUS 250 ML IVPB PRN (15:45)
[2023-07-07] MEDS ORDERED: Lorazepam 2 MG/ML VIAL SLOW IVP PRN (15:45)
[2023-07-07] MEDS ORDERED: Morphine 2 MG/ML VIAL SLOW IVP PRN (15:45)
[2023-07-07] MEDS ORDERED: Propofol BOLUS 1,000 MG/100 ML VIAL IV PRN (15:45)
[2023-07-07] MEDS ORDERED: DISCONTINUE PREVIOUS NARCOTIC PAIN MEDICATIONS AND BENZODIAZEPINES FS SCH (15:45)
[2023-07-07] MEDS: Propofol 1,000 MG/100 ML VIAL IV PRN (16:24)
[2023-07-07] MEDS: NOREPINEPHRINE 8 MG/250 ML-D5W 250 ML IVPB SCH (17:33)
[2023-07-07] MEDS ORDERED: Albumin 25% 25 GM (100 mL) BOT IVPB PRN (17:49)
[2023-07-07] MEDS: Propofol 1,000 MG/100 ML VIAL IV ONE (19:33)
[2023-07-07] MEDS ORDERED: Acetaminophen 650 MG/20.3 ML UDCUP PO PRN (21:08)
[2023-07-07] MEDS ORDERED: Cyclobenzaprine 10 MG TAB PER TUBE PRN (21:15)
[2023-07-07] MEDS ORDERED: Acetaminophen 650 MG/20.3 ML UDCUP PER TUBE PRN (21:15)
[2023-07-07] MEDS: Vancomycin HCl 125 MG/5 ML (BATCHED) UDCUP PER TUBE SCH (23:16)
[2023-07-08 05:29] LABS: #Basophils 0.06 10x3/uL (0.0-0.2); %Basophils 0.3 % (0.0-1.0); %Eosinophils 0.8 % (0.0-10.0); %Lymphocytes 2.1 % (21.0-51.0); %Monocytes 6.7 % (0.0-10.0); %Neutrophils 89.3 % (42.0-75.0); Hematocrit 27.6 % (36.0-47.0); Hemoglobin 7.8 g/dL (12.0-16.0); Mean Corpuscular HGB CONC 28.3 g/dL (32.0-36.0); Mean Corpuscular Hemoglobin 24.5 pg (27.0-31.0); Mean Corpuscular Volume 86.8 fL (78.0-98.0); Mean Platelet Volume 9.9 fL (7.4-10.4); Platelet Count 448 10x3/uL (130-400); RBC Distribution Width 20.9 % (11.5-14.5); Red Blood Cell (RBC) Count 3.18 mill/uL (4.20-5.40)
[2023-07-08 05:37] LABS: ALT (SGPT) 8 U/L (8-55); AST (SGOT) 14 U/L (5-34); Albumin 3.8 g/dL (3.5-5.0); Alkaline Phosphatase 121 U/L (40-110); Anion Gap 29 mmol/L (10-20); BUN (Urea Nitrogen) 95 mg/dL (9.8-20.1); BUN/Creatinine Ratio 27.07; Bilirubin, Total 0.9 mg/dL (0.2-1.2); Calc. Creatinine Clearance 49 mL/min (70-130); Calcium 10.3 mg/dL (7.8-10.44); Carbon Dioxide 15 mmol/L (22-29); Chloride 99 mmol/L (98-107); Estimated GFR 14; Globulin 3.9 g/dL (2.4-3.5); Glucose 170 mg/dL (70-105); Phosphorus 5.8 mg/dL (2.3-4.7); Potassium 5.1 mmol/L (3.5-5.1); Protein, Total 7.7 g/dL (6.0-8.3); Sodium 138 mmol/L (136-145)
[2023-07-08 06:12] LABS: Anisocytosis SLIGHT = 6-15 cells HPF (0-5); Hypochromia SLIGHT = 6-15 cells HPF (0-5); Microcytosis SLIGHT = 6-15 cells HPF (0-5); Platelet Adequacy Comment Platelets Normal; Polychromasia SLIGHT = 2-3 cells HPF (0-2)
[2023-07-08 07:39] LABS: Actual Bicarbonate (HCO3a) 16.2 mEq/L (22-28); Base Excess (BEa) -8.8 mEq/L (-2.0 to +3.0); CO2 Tension 31.5 mmHg (35.0-45.0); Calcium, Ionized (arterial) 1.22 mmol/L (1.12-1.30); Carboxyhemoglobin (COHb) 1.4 gm% (0.0-3.0); Hematocrit-ABG 26 % (36.0-47.0); O2 Tension (PaO2), arterial 76.2 mmHg (80.0-100.0); Potassium - ABG Lab 5.17 mmol/L (3.70-5.30); pH, Arterial 7.328 (7.35-7.45)
[2023-07-08 07:41] LABS: ALV-art Gradient 383.525 mmHg (0-20); Puncture Site LRA
[2023-07-08] MEDS ORDERED: Heparin 10,000 UNITS/ 10 ML VIAL ONE (08:59)
[2023-07-08] MEDS: busPIRone HCl 10 MG TAB PER TUBE SCH (09:01)
[2023-07-08] MEDS: Megestrol Acetate 40 MG TAB PER TUBE SCH (09:01)
[2023-07-08] MEDS: Metolazone 5 MG TAB PER TUBE SCH (09:02)
[2023-07-08] MEDS: Sertraline 25 MG TAB PER TUBE SCH (09:03)
[2023-07-08] MEDS: Pantoprazole 40 MG VIAL IVP SCH (09:04)
[2023-07-08] MEDS: Amiodarone 200 MG TAB PER TUBE SCH (09:29)
[2023-07-08 13:55] VITALS: BMI 68.1
[2023-07-08] MEDS: Fentanyl CADD 100 ML IV SCH (14:58)
[2023-07-08] MEDS: fentaNYL 50 mcg/mL 1 mL Vial SLOW IVP SCH (15:34)
[2023-07-08] MEDS: Vecuronium 10 MG VIAL IVP SCH (15:36)
[2023-07-08] MEDS: Sterile Water 10 ML ONE (15:36)
[2023-07-08] MEDS: fentaNYL 50 mcg/mL 1 mL Vial ONE (15:44)
[2023-07-08] MEDS: Vecuronium 10 MG VIAL ONE (15:45)
[2023-07-08] MEDS: Norepinephrine 16 MG in Dextrose 5% in Water 234 ML IVPB PRN (16:56)
[2023-07-08 18:41] VITALS: BP 101/65
[2023-07-08 22:39] LABS: Base Excess (BEa) -13.6 mEq/L (-2.0 to +3.0); CO2 Tension 39.8 mmHg (35.0-45.0); Calcium, Ionized (arterial) 1.19 mmol/L (1.12-1.30); Carboxyhemoglobin (COHb) 0.4 gm% (0.0-3.0); Hematocrit-ABG 30 % (36.0-47.0); Hemoglobin (Hb) 10.2 g/dL (12.0-16.0); Potassium - ABG Lab 5.97 mmol/L (3.70-5.30)
[2023-07-08 22:45] LABS: Actual Bicarbonate (HCO3a) 14.1 mEq/L (22-28); O2 Tension (PaO2), arterial 59.1 mmHg (80.0-100.0); pH, Arterial 7.168 (7.35-7.45)
[2023-07-08 22:46] LABS: Puncture Site LBA
[2023-07-08] MEDS: Dextrose 50% Abboject 50 ML SYRINGE SLOW IVP PRN (22:58)
[2023-07-08] MEDS: Sodium Bicarb 50 MEQ/50 ML Abboject 8.4% SYRINGE IVP SCH (23:00)
[2023-07-08] MEDS: Sodium Bicarb 50 mEq/50 ML VIAL IVP SCH (23:00)
[2023-07-08] MEDS: Insulin Regular, Human 100 UNIT/ML 10 ML VIAL IVP SCH (23:00)
[2023-07-09 00:16] VITALS: TEMP 99.6
[2023-07-09] MEDS: Vasopressin 20 UNITS in Sodium Chloride 0.9% 50 ML IV SCH (00:20)
[2023-07-09 03:24] LABS: Base Excess (BEa) -16.2 mEq/L (-2.0 to +3.0); CO2 Tension 36.8 mmHg (35.0-45.0); Calcium, Ionized (arterial) 1.11 mmol/L (1.12-1.30); Carboxyhemoglobin (COHb) 0.4 gm% (0.0-3.0); Hematocrit-ABG 30 % (36.0-47.0); Hemoglobin (Hb) 10.1 g/dL (12.0-16.0); O2 Tension (PaO2), arterial 63.5 mmHg (80.0-100.0)
[2023-07-09 03:25] LABS: Actual Bicarbonate (HCO3a) 11.9 mEq/L (22-28); pH, Arterial 7.129 (7.35-7.45)
[2023-07-09 03:26] LABS: Puncture Site LINE
[2023-07-09] MEDS: Insulin Regular, Human 100 UNIT/ML 10 ML VIAL IVP SCH ×2 (03:35→05:09)
[2023-07-09] MEDS ORDERED: Sodium Bicarb 50 MEQ/50 ML Abboject 8.4% SYRINGE ONE (03:35)
[2023-07-09] MEDS ORDERED: EPINEPHrine 1 MG/10 ML Abboject SYRINGE ONE (03:35)
[2023-07-09] MEDS: Dextrose 50% Abboject 50 ML SYRINGE SLOW IVP PRN (03:35)
[2023-07-09] MEDS ORDERED: Amiodarone 150 MG/3 ML VIAL ONE (03:35)
[2023-07-09] MEDS ORDERED: Amiodarone 450 MG/9 ML VIAL ONE (03:35)
[2023-07-09 04:01] LABS: ALT (SGPT) 1238 U/L (8-55); AST (SGOT) Greater than 4202 U/L (5-34); Albumin 3.7 g/dL (3.5-5.0); Alkaline Phosphatase 258 U/L (40-110); Anion Gap 38 mmol/L (10-20); BUN (Urea Nitrogen) 79 mg/dL (9.8-20.1); Bilirubin, Total 1.4 mg/dL (0.2-1.2); Calc. Creatinine Clearance 46 mL/min (70-130); Calcium 9.4 mg/dL (7.8-10.44); Carbon Dioxide 10 mmol/L (22-29); Chloride 96 mmol/L (98-107); Estimated GFR 13; Globulin 4.3 g/dL (2.4-3.5); Glucose 150 mg/dL (70-105); Lactic Acid 11.2 mmol/L (0.5-2.2); Potassium 6.7 mmol/L (3.5-5.1); Sodium 137 mmol/L (136-145)
[2023-07-09 04:25] LABS: Magnesium 2.3 mg/dL (1.6-2.6)
[2023-07-09] MEDS: Albumin 25% 25 GM (100 mL) BOT IVPB SCH (04:26)
[2023-07-09] MEDS: Sodium Bicarbonate 150 MEQ in Dextrose 5% in Water 1,000 ML IV SCH (04:33)
[2023-07-09 04:44] LABS: Base Excess (BEa) -15.4 mEq/L (-2.0 to +3.0); CO2 Tension 35.6 mmHg (35.0-45.0); Calcium, Ionized (arterial) 1.06 mmol/L (1.12-1.30); Carboxyhemoglobin (COHb) 0.5 gm% (0.0-3.0); Hematocrit-ABG 29 % (36.0-47.0); Hemoglobin (Hb) 9.8 g/dL (12.0-16.0); Potassium - ABG Lab 5.66 mmol/L (3.70-5.30)
[2023-07-09 04:48] LABS: pH, Arterial 7.156 (7.35-7.45)
[2023-07-09] MEDS ORDERED: Dextrose 50% Abboject 50 ML SYRINGE SLOW IVP PRN (04:48)
[2023-07-09 04:49] LABS: Actual Bicarbonate (HCO3a) 12.3 mEq/L (22-28); Puncture Site LINE
[2023-07-09] MEDS: [UNRECOGNIZED DRUG - OTHER] IVPB SCH (04:55)
[2023-07-09] MEDS: PHENYLEPHRINE IVPB SCH (04:55)
[2023-07-09 04:57] LABS: Anisocytosis SLIGHT = 6-15 cells HPF (0-5); Band 23 % (5-11); Hypochromia SLIGHT = 6-15 cells HPF (0-5); Large Platelets 5.8 % (0-5); Lymphocytes 2 % (21-51); Metamyelocyte 1 % (0-0); Monocytes 2 % (0-10); Neutrophil 72 % (42-75); Nucleated RBC (Manual Ct) 2 % (0); Platelet Adequacy Comment Platelets Increased; Polychromasia SLIGHT = 2-3 cells HPF (0-2); Smudge Cells 4.8 %
[2023-07-09 05:10] LABS: Hematocrit 32.6 % (36.0-47.0); Hemoglobin 8.8 g/dL (12.0-16.0); Mean Corpuscular Hemoglobin 24.4 pg (27.0-31.0); Mean Corpuscular Volume 90.3 fL (78.0-98.0); Mean Platelet Volume 9.9 fL (7.4-10.4); Platelet Count 563 10x3/uL (130-400); Red Blood Cell (RBC) Count 3.61 mill/uL (4.20-5.40)
[2023-07-09] MEDS: Amiodarone 450 MG in Dextrose 5% in Water 250 ML IVPB SCH (05:11)
[2023-07-09] MEDS: CALCIUM GLUC 1 GM/NS 50 ML 1 GM in Premix 1 BAG IVPB SCH (05:50)
[2023-07-09] MEDS: Sodium Bicarb 50 mEq/50 ML VIAL IVP SCH (05:52)
[2023-07-09] MEDS: Calcium Gluc 4.6 MEQ/10 ML (100 MG/ML) SLOW IVP ONE (06:28)
[2023-07-09] MEDS: EPINEPHrine 4 MG in Dextrose 5% in Water 250 ML IV SCH (06:41)
[2023-07-09 08:44] LABS: Anion Gap 37 mmol/L (10-20); BUN (Urea Nitrogen) 80 mg/dL (9.8-20.1); Calc. Creatinine Clearance 43 mL/min (70-130); Calcium 8.7 mg/dL (7.8-10.44); Carbon Dioxide 9 mmol/L (22-29); Chloride 96 mmol/L (98-107); Estimated GFR 13; Glucose 225 mg/dL (70-105); Potassium 5.3 mmol/L (3.5-5.1); Sodium 137 mmol/L (136-145)
[2023-07-09 08:47] LABS: Lactic Acid 12.2 mmol/L (0.5-2.2)
[2023-07-09 08:49] LABS: Critical Call Chem-Lactate NUR.JR13 AT 0840
== END 2023-07-09 09:19 | disposition expired | DRG 291 ==
LOC: ERS 21:21 → IMCU/EMU 22:45 → CCU 07-07 13:30
PROVIDERS: ADMIT Student in an Organized Health Care Education/Training Program; ATTEND Internal Medicine
PROC: 4A133R1 Monitoring of Arterial Saturation, Peripheral, Percutaneous Approach (ICD-10-PCS; 2023-06-24)
PROC: 5A09557 Assistance with Respiratory Ventilation, Greater than 96 Consecutive Hours, Continuous Positive Airway Pressure (ICD-10-PCS; 2023-06-25)
PROC: 30233J1 Transfusion of Nonautologous Serum Albumin into Peripheral Vein, Percutaneous Approach (ICD-10-PCS; 2023-06-28)
PROC: 06HY33Z Insertion of Infusion Device into Lower Vein, Percutaneous Approach (ICD-10-PCS; principal; 2023-07-07)
PROC: 0BH18EZ Insertion of Endotracheal Airway into Trachea, Via Natural or Artificial Opening Endoscopic (ICD-10-PCS; 2023-07-07)
PROC: 5A1945Z Respiratory Ventilation, 24-96 Consecutive Hours (ICD-10-PCS; 2023-07-07)
PROC: 0BJ08ZZ Inspection of Tracheobronchial Tree, Via Natural or Artificial Opening Endoscopic (ICD-10-PCS; 2023-07-08)
PROC: 3E033XZ Introduction of Vasopressor into Peripheral Vein, Percutaneous Approach (ICD-10-PCS; 2023-07-08)
DX: I13.0 Hypertensive heart and chronic kidney disease with heart failure and stage 1 through stage 4 chronic kidney disease, or unspecified chronic kidney disease (principal); I50.33 Acute on chronic diastolic (congestive) heart failure; J96.21 Acute and chronic respiratory failure with hypoxia; Z68.44 Body mass index [BMI] 60.0-69.9, adult; N17.9 Acute kidney failure, unspecified; E66.2 Morbid (severe) obesity with alveolar hypoventilation; E87.20 Acidosis, unspecified; A04.72 Enterocolitis due to Clostridium difficile, not specified as recurrent; I47.10 Supraventricular tachycardia, unspecified; R18.8 Other ascites; T17.590A Other foreign object in bronchus causing asphyxiation, initial encounter; F32.A Depression, unspecified; F41.9 Anxiety disorder, unspecified; J44.9 Chronic obstructive pulmonary disease, unspecified; Z90.89 Acquired absence of other organs; Z98.890 Other specified postprocedural states; Z85.42 Personal history of malignant neoplasm of other parts of uterus; Z88.1 Allergy status to other antibiotic agents; Z88.5 Allergy status to narcotic agent; Z79.899 Other long term (current) drug therapy; I48.91 Unspecified atrial fibrillation; Z79.4 Long term (current) use of insulin; E11.65 Type 2 diabetes mellitus with hyperglycemia; D72.829 Elevated white blood cell count, unspecified; E11.22 Type 2 diabetes mellitus with diabetic chronic kidney disease; E86.0 Dehydration; D75.839 Thrombocytosis, unspecified; Z79.01 Long term (current) use of anticoagulants; Z91.148 Patient's other noncompliance with medication regimen for other reason; D63.1 Anemia in chronic kidney disease; E87.5 Hyperkalemia; N18.30 Chronic kidney disease, stage 3 unspecified; Z66 Do not resuscitate
CPT/HCPCS: 31624; 36415; 36416; 36600; 71045; 76705; 80048; 80053; 80069; 81001; 82040; 82728; 82805; 83605; 83735; 83880; 84484; 85025; 85610; 85730; 86704; 86706; 86803; 87324; 87340; 87449; 87493; 93005; 93010; 93970; 94002; 94003; 94640; 94660; 94760; 96374; 96375; C9113; J0153; J0171; J0282; J0613; J1160; J1642; J1644; J1815; J1940; J2270; J2272; J2405; J2704; J2930; J3010; J3475; J7070; J7120; J7620; J7999; P9047; Q5105; S0179